=== PATIENT | male | born 1970 | race Caucasian/White ===

== ENCOUNTER 2016-10-02 20:36 | Emergency (ER) | payer OTHER ==
[~2016-10-02 20:36] MED LIST: ANTIBIOTIC; CLE150 PO; LAC30L PO; LOVASTATIN40 MG PO; NATURAL IRON65 MG; PRILOSEC20 MG PO
[2016-10-03 00:32] VITALS: BP 118/58
== END 2016-10-03 00:33 | disposition home or self-care (01) ==
LOC: ED 20:36
DX: K64.9 Unspecified hemorrhoids (principal)
CPT/HCPCS: J1170; J1885

== ENCOUNTER 2017-06-05 06:16 | Emergency (ER) | payer OTHER ==
[~2017-06-05] VITALS: Ht 162.6 cm; Wt 68.9 kg
[2017-06-05 06:46] VITALS: Ht 162.6 cm; Wt 68.9 kg
[2017-06-05 09:21] LABS: BASOPHIL % 0.5 % (0-2); PLATELET COUNT 315 x10^3mcL (130-400)
[2017-06-05 09:25] LABS: RED CELL DISTRIBUTION WIDTH 15.6 % (11.5-14.5)
[2017-06-05 09:47] LABS: CALCIUM 8.2 mg/dL (8.5-10.1); CARBON DIOXIDE 25.6 mmol/L (21-32); CHLORIDE SERUM 105 mmol/L (98-107); CREATININE SERUM 0.8 mg/dL (0.7-1.3); GFR1 > 60 mL/min; GLUCOSE SERUM 99 mg/dL (74-106); POTASSIUM SERUM 3.8 mmol/L (3.5-5.1); SODIUM SERUM 139 mmol/L (136-145)
[2017-06-05 09:52] LABS: ALBUMIN 3.4 g/dL (3.4-5.0); ALKALINE PHOSPHATASE 114 U/L (46-116); ALT/SGPT 101 U/L (16-63); AMYLASE 81 U/L (25-115); AST/SGOT 37 U/L (15-37); BILIRUBIN TOTAL 0.4 mg/dL (0.20-1.00); LIPASE 154 IU/L (73-393); TOTAL PROTEIN, SERUM 6.9 g/dL (6.4-8.2)
[2017-06-05 11:07] VITALS: BP 122/77
== END 2017-06-05 11:07 | disposition home or self-care (01) ==
LOC: ED 06:16
PROVIDERS: Specialist
DX: R10.13 Epigastric pain (principal); K21.9 Gastro-esophageal reflux disease without esophagitis
CPT/HCPCS: 83880; J2765; J3010; J7030; Q0092

== ENCOUNTER 2018-05-19 10:18 | Emergency (ER) | payer OTHER ==
[~2018-05-19] VITALS: Ht 162.6 cm; Wt 70.9 kg
[2018-05-19 10:37] VITALS: Ht 162.6 cm; Wt 70.9 kg
[2018-05-19 15:19] VITALS: BP 105/83
== END 2018-05-19 15:20 | disposition home or self-care (01) ==
LOC: ED 10:18
DX: T78.40XA Allergy, unspecified, initial encounter (principal); X58.XXXA Exposure to other specified factors, initial encounter

== ENCOUNTER 2018-12-23 22:22 | Emergency (ER) | payer OTHER ==
[~2018-12-23] VITALS: Ht 162.6 cm; Wt 71.2 kg
[2018-12-23 22:24] VITALS: Ht 162.6 cm; Wt 71.2 kg
[2018-12-24 00:05] LABS: BASOPHIL % 1.3 % (0-2); PLATELET COUNT 301 x10^3mcL (130-400)
[2018-12-24 00:08] LABS: CALCIUM 8.5 mg/dL (8.5-10.1); CARBON DIOXIDE 30.4 mmol/L (21-32); CHLORIDE SERUM 107 mmol/L (98-107); CREATININE SERUM 0.9 mg/dL (0.7-1.3); GFR1 > 60 mL/min; GLUCOSE SERUM 97 mg/dL (74-106); POTASSIUM SERUM 3.8 mmol/L (3.5-5.1); SODIUM SERUM 141 mmol/L (136-145)
[2018-12-24 00:09] LABS: ALBUMIN 3.5 g/dL (3.4-5.0); ALKALINE PHOSPHATASE 121 U/L (46-116); ALT/SGPT 62 U/L (16-63); AST/SGOT 20 U/L (15-37); BILIRUBIN TOTAL 0.2 mg/dL (0.20-1.00); TOTAL PROTEIN, SERUM 7.3 g/dL (6.4-8.2)
[2018-12-24 02:26] VITALS: BP 121/68
== END 2018-12-24 02:26 | disposition home or self-care (01) ==
LOC: ED 22:22
PROVIDERS: Emergency Medicine
DX: M79.10 Myalgia, unspecified site (principal); K21.9 Gastro-esophageal reflux disease without esophagitis; R10.13 Epigastric pain; R00.2 Palpitations; Z86.2 Personal history of diseases of the blood and blood-forming organs and certain disorders involving the immune mechanism
CPT/HCPCS: J2270; J2405; J7030

== ENCOUNTER 2019-04-08 00:46 | Emergency (ER) | payer OTHER ==
[~2019-04-08] VITALS: Ht 162.6 cm; Wt 71.2 kg
[2019-04-08 00:51] VITALS: Ht 162.6 cm; Wt 71.2 kg
[2019-04-08 01:34] LABS: CALCIUM 8.5 mg/dL (8.5-10.1); CARBON DIOXIDE 25.8 mmol/L (21-32); CHLORIDE SERUM 103 mmol/L (98-107); CREATININE SERUM 0.9 mg/dL (0.7-1.3); GFR1 > 60 mL/min; GLUCOSE SERUM 101 mg/dL (74-106); POTASSIUM SERUM 3.6 mmol/L (3.5-5.1); SODIUM SERUM 141 mmol/L (136-145)
[2019-04-08 01:38] LABS: ALBUMIN 3.6 g/dL (3.4-5.0); ALKALINE PHOSPHATASE 141 U/L (46-116); ALT/SGPT 65 U/L (16-63); AST/SGOT 24 U/L (15-37); BILIRUBIN TOTAL 0.22 mg/dL (0.20-1.00); LIPASE 245 IU/L (73-393); TOTAL PROTEIN, SERUM 7.6 g/dL (6.4-8.2)
[2019-04-08 01:54] LABS: BASOPHIL % 0.9 % (0-2); PLATELET COUNT 271 x10^3mcL (130-400)
[2019-04-08 02:18] LABS: microscopic required? NO
[2019-04-08 02:28] LABS: UA SPECIFIC GRAVITY <=1.005 (1.005-1.035); urine erythrocyte NEGATIVE (NEGATIVE)
[2019-04-08 04:15] VITALS: BP 125/76
== END 2019-04-08 04:15 | disposition home or self-care (01) ==
LOC: ED 00:46
PROVIDERS: Emergency Medicine
DX: R10.31 Right lower quadrant pain (principal); K21.9 Gastro-esophageal reflux disease without esophagitis
CPT/HCPCS: 36415; J1885

== ENCOUNTER 2019-04-08 12:55 | Emergency (ER) | payer OTHER ==
[~2019-04-08] VITALS: Ht 162.6 cm; Wt 71.2 kg
[2019-04-08 13:07] VITALS: Ht 162.6 cm; Wt 71.2 kg
[2019-04-08 15:01] VITALS: BP 101/64
== END 2019-04-08 15:01 | disposition home or self-care (01) ==
LOC: ED 12:55
DX: K57.92 Diverticulitis of intestine, part unspecified, without perforation or abscess without bleeding (principal); K21.9 Gastro-esophageal reflux disease without esophagitis
CPT/HCPCS: J1885

== ENCOUNTER 2019-11-27 23:20 | Emergency (ER) | payer OTHER, SELFPAY ==
[~2019-11-27] VITALS: Ht 162.6 cm; Wt 74.8 kg
[2019-11-27 23:22] VITALS: Ht 162.6 cm; Wt 74.8 kg
[2019-11-28 00:10] VITALS: BP 121/77
== END 2019-11-28 00:10 | disposition home or self-care (01) ==
LOC: ED 23:20
DX: R19.7 Diarrhea, unspecified (principal); R51 Headache; R05 Cough; M79.10 Myalgia, unspecified site; Z20.828 Contact with and (suspected) exposure to other viral communicable diseases
CPT/HCPCS: U0003-CS